=== PATIENT | male | born 1990 | race Caucasian/White ===

== ENCOUNTER 2023-11-24 20:50 | Emergency (ER) | payer OTHER ==
[~2023-11-24] VITALS: Ht 172.7 cm; Wt 75.0 kg
[~2023-11-24 20:50] MED LIST: NOCURR
[2023-11-24 21:27] VITALS: TEMP 98
[2023-11-25 00:22] VITALS: BP 137/79; PULSE 70; RESP 16
[2023-11-25] MEDS ORDERED: METH-659 PO (00:36)
[2023-11-25] MEDS ORDERED: IBUP-1492 PO (00:36)
[2023-11-25] MEDS: OxyCODONE HCL/ACETAMINOPHEN 5-325 MG TABLET PO ONE (00:40)
[2023-11-25] MEDS: KETOROLAC TROMETHAMINE 60 MG/2 ML VIAL IM ONE (00:41)
[2023-11-25] MEDS: METHOCARBAMOL 500 MG TABLET PO ONE (00:41)
== END 2023-11-25 01:00 | disposition home or self-care (01) ==
LOC: EMS 20:50
DX: S29.012A Strain of muscle and tendon of back wall of thorax, initial encounter (principal); F12.90 Cannabis use, unspecified, uncomplicated; Z88.2 Allergy status to sulfonamides; Z88.8 Allergy status to other drugs, medicaments and biological substances; V98.8XXA Other specified transport accidents, initial encounter; Y93.89 Activity, other specified; Y92.89 Other specified places as the place of occurrence of the external cause; Y99.8 Other external cause status
CPT/HCPCS: 99285; 70450; 96372; J1885